=== PATIENT | male | born 1990 | race Caucasian/White ===

== ENCOUNTER 2017-01-21 18:38 | Emergency (ER) | payer MEDICAID ==
[~2017-01-21] VITALS: Ht 170.2 cm; Wt 83.0 kg
[2017-01-21 18:40] VITALS: BP 130/78
== END 2017-01-21 20:07 | disposition home or self-care (01) ==
LOC: ED 18:38
DX: L03.115 Cellulitis of right lower limb (principal); J45.909 Unspecified asthma, uncomplicated